=== PATIENT | male | born 1970 ===

== ENCOUNTER 2018-11-08 23:09 | Observation (INO) | payer BC, SELFPAY ==
[2018-11-08] MEDS ORDERED: Nitroglycerin 0.4 MG TAB (25 Tab Bottle) ONE (23:31)
[2018-11-08] MEDS ORDERED: Nitroglycerin 2% Ointment 1 INCH/1 GM Packet ONE (23:31)
[2018-11-08 23:39] LABS: #Basophils 0.1 thou/uL (0.0-0.2); #Eosinphils 0.2 thou/uL (0.0-0.7); #Lymphocytes 1.6 thou/uL (1.20-3.40); #Monocytes 0.5 thou/uL (0.11-0.59); #Neutrophils 2.9 thou/uL (1.40-6.50); %Basophils 1.4 % (0.0-1.0); %Eosinophils 3.7 % (0.0-10.0); %Lymphocytes 30.2 % (21.0-51.0); %Neutrophils 55.6 % (42.0-75.0); Mean Corpuscular HGB CONC 34.5 g/dL (32.0-36.0); Mean Corpuscular Hemoglobin 30.1 pg (27.0-31.0); Mean Corpuscular Volume 87.3 fL (78.0-98.0); Mean Platelet Volume 8.6 fL (7.4-10.4); Platelet Count 258 thou/uL (130-400); RBC Distribution Width 12.3 % (11.5-14.5); Red Blood Cell (RBC) Count 4.64 mill/uL (4.70-6.10); White Blood Cell (WBC) Count 5.1 thou/uL (4.8-10.8)
[2018-11-08 23:51] LABS: ALT (SGPT) 21 U/L (8-55); AST (SGOT) 27 U/L (5-34); Albumin 4.2 g/dL (3.5-5.0); Alkaline Phosphatase 75 U/L (40-150); Anion Gap 16 mmol/L (10-20); BUN (Urea Nitrogen) 22 mg/dL (8.9-20.6); Bilirubin, Total 0.4 mg/dL (0.2-1.2); CK (CPK) 1066 U/L (30-200); Calc. Creatinine Clearance 0 mL/min (70-130); Calcium 9.4 mg/dL (7.8-10.44); Carbon Dioxide 27 mmol/L (22-29); Chloride 102 mmol/L (98-107); Estimated GFR-MDRD 27; Globulin 3.7 g/dL (2.4-3.5); Glucose 160 mg/dL (70-105); Lipase 91 U/L (8-78); Protein, Total 7.9 g/dL (6.0-8.3); Sodium 142 mmol/L (136-145)
[2018-11-08 23:53] LABS: Potassium 2.7 mmol/L (3.5-5.1)
--- NOTE | 2018-11-08 23:58 | RAD ---
PORTABLE CHEST ONE VIEW: 11/08/18 at 11:53 p.m. HISTORY: Chest pain. FINDINGS: The heart size is borderline. No lobar consolidation, pneumothoraces, kristopher pulmonary edema or pleura l effusions are seen. IMPRESSION: No acute process. POS: [facility]
[2018-11-09] MEDS ORDERED: Potassium Chloride 20 MEQ TAB ONE (00:18)
[2018-11-09] MEDS ORDERED: Aspirin 325 MG TAB ONE (00:18)
[2018-11-09 01:48] VITALS: BMI 36.3
[2018-11-09] MEDS ORDERED: hydrALAZINE 20 MG/ML VIAL SLOW IVP PRN ×2 (02:31→03:37)
[2018-11-09] MEDS ORDERED: Sodium Chloride 0.9% 1,000 ML IV SCH ×2 (02:45→03:45)
[2018-11-09 03:19] LABS: Troponin I 0.019 ng/mL (< 0.028)
[2018-11-09] MEDS ORDERED: tiZANidine HCl 4 MG TAB PO PRN (03:39)
[2018-11-09] MEDS ORDERED: Acetaminophen/Codeine 30-300mg Tablet PO PRN (03:39)
[2018-11-09] MEDS ORDERED: Carvedilol 25 MG TAB PO SCH (04:00)
[2018-11-09] MEDS ORDERED: NIFEdipine XL 60 MG TAB PO SCH (04:00)
[2018-11-09] MEDS: Acetaminophen 325 MG TAB PO PRN ×2 (04:00→10:40)
--- NOTE | 2018-11-09 04:59 | HP ---
PRIMARY CARE PHYSICIAN: Dr. Menchaca at the [facility]. CHIEF COMPLAINT: Pain in the left shoulder, neck, and arm. HISTORY OF PRESENT ILLNESS: Mr. Baker is a pleasant 48-year-old gentleman who has a history of hypertension and hypercholesterolemia as well as chronic kidney disease stage 3. He was in his usual state of health until the past week when he noticed that he started having pain in his shoulder and left arm that has been radiating to his jaw. He says that he had been on a workout routine, but then had stopped for a while and then was getting back at it and had been doing some pushups off and on and he attributed this pain to that. He says that he went to have a massage, but this did not help with the pain and he also noticed that it was there all the time, it feels like a pressure and sometimes it can get as bad as an 8/10. There is no shortness of breath, no nausea, no vomiting associated with it. He denies any leg pain or leg swelling and no palpitations. However, when he came to the emergency room, he was noted to have an extremely high blood pressure with the systolic as high as 240 and diastolics in the one teens and for this reason, he is being placed in observation. When asked if he has had trouble with blood pressure control, he says yes. He also was sent to see a aerospace control and warning systems due to his chronic kidney disease as well as his elevated blood pressure. Currently, he says he has gotten some blood work done as well as collecting a 24-hour urine to help to determine why his blood pressure is high and also why his potassium tends to run low. He says he has been tried on multiple medications including clonidine, hydralazine, and Procardia. 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 He also says that his baseline creatinine is about 2. REVIEW OF SYSTEMS: All systems were reviewed and are negative except for that mentioned in the History of Present Illness. PAST MEDICAL HISTORY: Significant for hypertension, elevated cholesterol, and chronic kidney disease stage 3. PAST SURGICAL HISTORY: He has had left knee surgery due to a torn meniscus. ALLERGIES: NO KNOWN DRUG ALLERGIES. SOCIAL HISTORY: He is . He is a nonsmoker and nondrinker. Denies any drug use. FAMILY HISTORY: Significant for father who had diabetes mellitus, hypertension, cerebrovascular disease, and the mother had an PA. CURRENT MEDICATIONS: Include; 1. Carvedilol 25 mg twice daily. 2. Losartan 100 mg daily. 3. Potassium 40 mEq a day. PHYSICAL EXAMINATION: GENERAL: He is alert and oriented. He appears to be in no acute distress. He is well developed and well nourished. VITAL SIGNS: Blood pressure is 204/114, heart rate 57, respiratory rate of 16, temperature is 98.4, and O2 saturation is 96% on room air. HEENT: Pupils are equal, round, and reactive to light. Extraocular muscles are intact. His sclerae are anicteric. Throat; no erythema, no exudates. NECK: No adenopathy. No bruits. LUNGS: Clear to auscultation. There is no wheezing, no rales, no rhonchi. CARDIOVASCULAR: He has a normal S1, S2. There is no S3 or S4. No murmurs, clicks, or rubs. ABDOMEN: Obese, it is soft, it is nontender and nondistended. Positive for bowel sounds. No rebound. No guarding. No organomegaly. EXTREMITIES: There is no clubbing or cyanosis. No edema. No calf tenderness. No joint effusions. There is no crepitus in the shoulder joint. There is no warmth, no effusions, and he has a full range of motion. NEUROLOGIC: Cranial nerves 2 through 12 are intact. Muscle strength is 5/5 in both his upper and lower extremities. SKIN AND INTEGUMENT: No skin changes, no rash. LABORATORY RESULTS: White blood cell count 5.1, hemoglobin 14, hematocrit is 40.5, and platelet count is 258. Sodium 142, potassium 2.7, chloride is 102, CO2 is 27, BUN of 22, creatinine 2.5, glucose is 160. CK is 1066. Troponin is 0.1. Chest x-ray is poorly penetrated and heart size is a bit large, so there is some mild cardiomegaly and no increase in pulmonary vascular markings. ASSESSMENT: This is a 48-year-old gentleman who presents to the emergency room complaining of pain and discomfort in his left shoulder, arm, and neck. I suspect this is due to a muscle strain; however, his blood pressure was extremely high and therefore, he is being placed in observation as a precaution. 1. For hypertensive urgency, we will restart Procardia tonight in addition to continuing the losartan and the carvedilol. Given he has had longstanding hypertension, we will go ahead and get an echocardiogram as well to assess his ejection fraction and to see if there is any evidence of hypertrophy. 2. Left shoulder pain. Again, this is suspected to be musculoskeletal, but we will go ahead and get a stress test since he has not had one recently. Check a lipid panel and screen him for diabetes to further assess his risk for coronary artery disease. 3. Chronic kidney disease. He may have a mild [id number] kidney insufficiency. However, his says she believes that his creatinine is about 2 to 2.4 at baseline. 4. Hypokalemia. We will continue to replace. It appears as if he is probably getting this worked up by his aerospace control and warning systems, Dr. Quintana at [facility]. I suspect he is being screened for hyperaldosteronism as well as other potential causes and if necessary, those records can be obtained. 5. Hopefully, if the patient's blood pressure is within a reasonable range, likely acceptable goal would be 160s to 150s systolic, then likely he can be discharged home if his echo and stress test are negative. Job ID: [id number]
[2018-11-09 05:20] LABS: Troponin I 0.014 ng/mL (< 0.028)
[2018-11-09] MEDS: Nitroglycerin 2% Ointment 1 INCH/1 GM Packet TOP SCH ×3 (05:36→20:59)
[2018-11-09] MEDS ORDERED: Ondansetron PF 4 MG/2 ML Vial IVP PRN (08:13)
[2018-11-09] MEDS ORDERED: Diabetic Tussin 200 MG/10 ML UDCUP PO PRN (08:13)
[2018-11-09] MEDS ORDERED: Calcium Carbonate 500 MG ChewTAB PO PRN (08:13)
[2018-11-09] MEDS ORDERED: HYDROcodone/Acetaminophen 5/325 mg Tablet PO PRN (08:13)
[2018-11-09] MEDS ORDERED: Sodium Chloride 0.65% Nasal 44 ML BOT EA NARE PRN (08:13)
[2018-11-09] MEDS ORDERED: Ondansetron ODT 4 MG TAB PO PRN (08:13)
[2018-11-09] MEDS ORDERED: Loratadine 10 MG TAB PO PRN (08:13)
[2018-11-09] MEDS ORDERED: Artificial Tears 18 DROP/0.9 ML EA EYE PRN (08:13)
[2018-11-09] MEDS ORDERED: Senokot S 8.6-50 MG TAB PO PRN (08:13)
[2018-11-09] MEDS ORDERED: Loperamide HCl 2 MG CAP PO PRN (08:13)
[2018-11-09] MEDS ORDERED: Zolpidem Tartrate 5 MG TAB PO PRN (08:13)
[2018-11-09] MEDS ORDERED: Cepastat Lozenges 1 LOZ PO PRN (08:13)
[2018-11-09] MEDS ORDERED: Bisacodyl 10 MG SUPP PR PRN (08:13)
[2018-11-09] MEDS ORDERED: Potassium Chloride 20 MEQ TAB PO SCH ×2 (09:00→12:00)
[2018-11-09 09:10] LABS: Magnesium 2.2 mg/dL (1.6-2.6)
[2018-11-09 09:20] LABS: Anion Gap 15 mmol/L (10-20); BUN (Urea Nitrogen) 20 mg/dL (8.9-20.6); CK (CPK) 936 U/L (30-200); Calc. Creatinine Clearance 74 mL/min (70-130); Calcium 9.6 mg/dL (7.8-10.44); Carbon Dioxide 24 mmol/L (22-29); Chloride 104 mmol/L (98-107); Estimated GFR-MDRD 35; Glucose 80 mg/dL (70-105); Sodium 140 mmol/L (136-145)
[2018-11-09 09:23] LABS: Potassium 2.9 mmol/L (3.5-5.1)
--- NOTE | 2018-11-09 09:55 | PDOC.HOSPP ---
- Subjective Encounter Date: 11/09/18 Encounter Time: 07:40 Subjective: Patient seen and examined. No new complaints. No overnight events - Objective Vital Signs & Weight: Vital Signs (12 hours) Temp Pulse Resp BP BP Pulse Ox 11/09/18 07:37 97.7 F 61 18 179/102 H 97 11/09/18 05:39 150/81 H 11/09/18 05:21 49 L 205/111 H 11/09/18 03:59 57 L 211/114 H 11/09/18 03:51 98.4 F 51 L 16 211/114 H 98 11/09/18 03:37 98 11/09/18 01:34 98.4 F 57 L 16 204/114 H 96 Weight Weight 260 lb 11.2 oz Result Diagrams: 11/08/18 23:28 11/09/18 08:36 EKG Reviewed by me: Yes (nsr) Hospitalist ROS - Review of Systems Constitutional: denies: fever, chills, sweats, weakness, malaise, other Eyes: denies: pain, vision change, conjunctivae inflammation, eyelid inflammation, redness, other ENT: denies: ear pain, ear discharge, nose pain, nose discharge, nose congestion , mouth pain, mouth swelling, throat pain, throat swelling, other Respiratory: denies: cough, dry, shortness of breath, hemoptysis, SOB with excertion, pleuritic pain, sputum, wheezing, other Cardiovascular: denies: chest pain, palpitations, orthopnea, paroxysmal noc. dyspnea, edema, light headedness, other Gastrointestinal: denies: nausea, vomitting, abdominal pain, diarrhea, constipation, melena, hematochezia, other Genitourinary: denies: dysuria, frequency, incontinence, hematuria, retention, other Musculoskeletal: denies: neck pain, shoulder pain, arm pain, back pain, hand pain, leg pain, foot pain, other Skin: denies: rash, lesions, garcia, bruising, other - Medication Medications: Active Medications Generic Name Dose Route Start Last Admin Trade Name Freq PRN Reason Stop Dose Admin Acetaminophen 650 mg 11/09/18 03:37 11/09/18 04:00 Tylenol PO 650 mg Q4H PRN Administration Headache/Fever/Mild Pain (1-3) Hydralazine HCl 20 mg 11/09/18 03:37 11/09/18 05:21 Apresoline SLOW IVP 20 mg Q6H PRN Administration SBP Greater Than 170 Sodium Chloride 1,000 mls @ 50 mls/hr 11/09/18 03:45 11/09/18 04:06 Normal Saline 0.9% IV 1,000 mls .Q20H BRIDGETTE Administration Nitroglycerin 0.5 inch 11/09/18 06:00 11/09/18 05:36 Nitro-Bid 2% Ointment TOP Not Given Q8HR BRIDGETTE Tizanidine HCl 4 mg 11/09/18 03:39 11/09/18 04:03 Zanaflex PO 4 mg TID PRN Administration Muscle Spasm - Exam General Appearance: NAD, awake alert Eye: PERRL, anicteric sclera ENT: normocephalic atraumatic, no oropharyngeal lesions Neck: supple, symmetric, no JVD, no thyromegaly Heart: RRR, no murmur, no gallops, no rubs, normal peripheral pulses Respiratory: CTAB, no wheezes, no rales, no ronchi Gastrointestinal: soft, non-tender, non-distended, normal bowel sounds, no palpable masses, no hepatomegaly Extremities: no cyanosis, no clubbing, no edema Skin: normal turgor, no lesions, no rashes Neurological: CN's grossly intact, normal sensation to touch, no focal deficits Musculoskeletal: normal tone, normal strength, no muscle wasting Psychiatric: normal affect, normal behavior, A&O x 3 Hosp A/P (1) Hypertensive urgency Code(s): I16.0 - HYPERTENSIVE URGENCY Status: Acute (2) Hypokalemia Code(s): E87.6 - HYPOKALEMIA Status: Acute (3) Left shoulder pain Code(s): M25.512 - PAIN IN LEFT SHOULDER Status: Acute (4) Rhabdomyolysis Code(s): M62.82 - RHABDOMYOLYSIS Status: Acute (5) CKD (chronic kidney disease) stage 4, GFR 15-29 ml/min Code(s): N18.4 - CHRONIC KIDNEY DISEASE, STAGE 4 (SEVERE) Status: Chronic (6) Obesity (BMI 30-39.9) Code(s): E66.9 - OBESITY, UNSPECIFIED Status: Chronic - Plan old records reviewed/req, plan discussed w/ family change KCL 40 meq po bid given hypokalemia and hypertension, check renin activity and aldosterone level today stress test mag and phos checked, normal CK improving will repeat bmp tomorrow medication reviewed as above symptomatic treatment
[2018-11-09] MEDS: Heparin 5,000 UNITS/ML VIAL SC SCH ×3 (10:45→20:59)
[2018-11-09] MEDS: hydrALAZINE 25 MG TAB PO SCH ×4 (10:45→20:57)
[2018-11-09] MEDS: Potassium Chloride 20 MEQ TAB PO SCH ×2 (12:38→17:03)
[2018-11-09] MEDS: Losartan 25 MG TAB PO SCH (12:38)
[2018-11-09] MEDS: Spironolactone 25 MG TAB PO SCH ×2 (12:39→17:04)
--- NOTE | 2018-11-09 13:04 | NM ---
Exam: Nuclear medicine cardiac stress only study with ejection fraction and wall motion HISTORY: Chest pain Nuclear medicine treadmill stress study is performed Patient was injected with 31.7 mCi technetium 99m sestamibi intravenously for stress images Short axis, vertical long axis, and horizontal long axis images demonstrate no evidence for infarct o r ischemia. LHR 0.24 EDV 185 mL Ejection fraction 53% Wall motion unremarkable. IMPRESSION: No scan evidence for infarct or ischemia. Elevated EDV at 185 mL.
[2018-11-09] MEDS: Carvedilol 25 MG TAB PO SCH (20:58)
[2018-11-10 05:45] LABS: #Basophils 0.1 thou/uL (0.0-0.2); #Eosinphils 0.2 thou/uL (0.0-0.7); #Monocytes 0.4 thou/uL (0.11-0.59); #Neutrophils 3.1 thou/uL (1.40-6.50); %Basophils 1.2 % (0.0-1.0); %Eosinophils 2.6 % (0.0-10.0); %Lymphocytes 35.3 % (21.0-51.0); %Monocytes 7.1 % (0.0-10.0); %Neutrophils 53.8 % (42.0-75.0); Hemoglobin 14.9 g/dL (14.0-18.0); Mean Corpuscular HGB CONC 34.9 g/dL (32.0-36.0); Mean Corpuscular Hemoglobin 31.3 pg (27.0-31.0); Mean Corpuscular Volume 89.8 fL (78.0-98.0); Platelet Count 272 thou/uL (130-400); RBC Distribution Width 12.2 % (11.5-14.5); Red Blood Cell (RBC) Count 4.77 mill/uL (4.70-6.10); White Blood Cell (WBC) Count 5.8 thou/uL (4.8-10.8)
[2018-11-10] MEDS: hydrALAZINE 25 MG TAB PO SCH ×2 (05:59→16:06)
[2018-11-10] MEDS: Losartan 25 MG TAB PO SCH (06:01)
[2018-11-10 06:05] LABS: Anion Gap 14 mmol/L (10-20); BUN (Urea Nitrogen) 21 mg/dL (8.9-20.6); Calc. Creatinine Clearance 75 mL/min (70-130); Calcium 9.7 mg/dL (7.8-10.44); Carbon Dioxide 24 mmol/L (22-29); Cardiac Risk 5.2 (Less than 4.5); Chloride 102 mmol/L (98-107); Cholesterol 273 mg/dl (< 200 Desired); Estimated GFR-MDRD 36; Glucose 109 mg/dL (70-105); HDL Cholesterol 53 mg/dL (>60 Neg Risk); LDL Cholesterol, Calculated 198 mg/dL; Sodium 137 mmol/L (136-145); Triglycerides 110 mg/dL (Less than 150)
[2018-11-10 06:08] LABS: Potassium 2.9 mmol/L (3.5-5.1)
[2018-11-10] MEDS: Nitroglycerin 2% Ointment 1 INCH/1 GM Packet TOP SCH ×2 (06:41→16:06)
[2018-11-10] MEDS: Potassium Chloride 20 MEQ TAB PO SCH (08:38)
[2018-11-10] MEDS: Spironolactone 25 MG TAB PO SCH (08:39)
[2018-11-10] MEDS: Carvedilol 25 MG TAB PO SCH (08:41)
[2018-11-10] MEDS: Heparin 5,000 UNITS/ML VIAL SC SCH ×2 (08:43→16:06)
[2018-11-10] MEDS ORDERED: NIFEdipine XL 60 MG TAB PO SCH (09:00)
[2018-11-10] MEDS ORDERED: Spironolactone 100 MG TAB PO SCH (09:30)
[2018-11-10] MEDS ORDERED: Potassium Chloride 20 MEQ TAB PO SCH ×2 (09:30→10:30)
--- NOTE | 2018-11-10 10:03 | PDOC.HOSPP ---
- Subjective Encounter Date: 11/10/18 Encounter Time: 10:01 Subjective: 48 y/o male with uncontrolled HTN, CKD 3 admitted with left shoulder pain radiating to jaw and arm. found to have markedly elevated BP and hypokalemia on presentation. Acute [place] was ruled out and he subsequently had stress test which was negative. BP remained uncontroled and hypokalemia persist. - Objective Vital Signs & Weight: Vital Signs (12 hours) Temp Pulse Resp BP BP Pulse Ox 11/10/18 09:11 98 11/10/18 08:00 98.2 F 65 16 182/110 H 98 11/10/18 06:00 182/111 H 11/10/18 05:59 73 186/111 H 11/10/18 05:42 97 11/10/18 05:22 196/117 H 11/09/18 23:45 73 18 166/92 H Weight Weight 260 lb 11.2 oz I&O: 11/09/18 11/10/18 11/11/18 06:59 06:59 06:59 Intake Total 1180 Output Total 1450 Balance -270 Result Diagrams: 11/10/18 05:25 11/10/18 05:25 Hospitalist ROS - Medication Medications: Active Medications Generic Name Dose Route Start Last Admin Trade Name Freq PRN Reason Stop Dose Admin Acetaminophen 650 mg 11/09/18 03:37 11/09/18 10:40 Tylenol PO 650 mg Q4H PRN Administration Headache/Fever/Mild Pain (1-3) Heparin Sodium (Porcine) 5,000 units 11/09/18 09:00 11/10/18 08:43 Heparin SC Not Given TID [facility] Hydralazine HCl 20 mg 11/09/18 03:37 11/09/18 05:21 Apresoline SLOW IVP 20 mg Q6H PRN Administration SBP Greater Than 170 Hydralazine HCl 25 mg 11/09/18 09:00 11/10/18 05:59 Apresoline PO 25 mg QID BRIDGETTE Administration Losartan Potassium 100 mg 11/09/18 09:00 11/10/18 06:01 Cozaar PO 100 mg DAILY BRIDGETTE Administration Nifedipine 60 mg 11/10/18 09:00 11/10/18 08:41 Procardia Xl PO 60 mg DAILY BRIDGETTE Administration Nitroglycerin 0.5 inch 11/09/18 06:00 11/10/18 06:41 Nitro-Bid 2% Ointment TOP Not Given Q8HR BRIDGETTE Tizanidine HCl 4 mg 11/09/18 03:39 11/09/18 04:03 Zanaflex PO 4 mg TID PRN Administration Muscle Spasm - Exam General Appearance: awake alert General - other findings: heavy built male Eye: anicteric sclera ENT: normocephalic atraumatic Neck: supple, symmetric Heart: RRR Respiratory: no wheezes, no rales, no ronchi, normal chest expansion, no tachypnea Gastrointestinal: soft, non-tender, non-distended, normal bowel sounds Extremities: no cyanosis, no edema Extremeties - other findings: Left shoulder tenderness Neurological: CN's grossly intact, no focal deficits Psychiatric: normal affect, A&O x 3 Hosp A/P (1) Hypertensive urgency Code(s): I16.0 - HYPERTENSIVE URGENCY Status: Acute (2) Hypokalemia Code(s): E87.6 - HYPOKALEMIA Status: Acute (3) Left shoulder pain Code(s): M25.512 - PAIN IN LEFT SHOULDER Status: Acute (4) Rhabdomyolysis Code(s): M62.82 - RHABDOMYOLYSIS Status: Acute (5) Obesity (BMI 30-39.9) Code(s): E66.9 - OBESITY, UNSPECIFIED Status: Chronic (6) CKD (chronic kidney disease) stage 3, GFR 30-59 ml/min Code(s): N18.3 - CHRONIC KIDNEY DISEASE, STAGE 3 (MODERATE) Status: Acute (7) Hyperaldosteronism Code(s): E26.9 - HYPERALDOSTERONISM, UNSPECIFIED Status: Acute (8) YOLANDA (obstructive sleep apnea) Code(s): G47.33 - OBSTRUCTIVE SLEEP APNEA (ADULT) (PEDIATRIC) Status: Acute - Plan Substitute coreg with labetalol. Replete serum potassium. Start spironolactone 100 mg daily for presumed primary hyperaldo Await PAR ratio get Renal US with dopplers Rechecl electrolytes
[2018-11-10] MEDS ORDERED: Labetalol 100 MG TAB PO SCH ×2 (10:30→21:00)
[2018-11-10 12:24] LABS: Anion Gap 11 mmol/L (10-20); BUN (Urea Nitrogen) 22 mg/dL (8.9-20.6); Calc. Creatinine Clearance 67 mL/min (70-130); Calcium 9.4 mg/dL (7.8-10.44); Carbon Dioxide 28 mmol/L (22-29); Chloride 103 mmol/L (98-107); Estimated GFR-MDRD 31; Glucose 96 mg/dL (70-105); Potassium 3.2 mmol/L (3.5-5.1); Sodium 139 mmol/L (136-145)
[2018-11-10 15:38] VITALS: BP 143/81; TEMP 98.1
--- NOTE | 2018-11-10 17:52 | PDOC.EVN ---
Event Note - Event Note Event Note: Discharge summary dictated. #[id number]
--- NOTE | 2018-11-10 18:32 | DIS ---
DATE OF ADMISSION: 11/09/2018 DATE OF DISCHARGE: 11/10/2018 PRIMARY CARE PHYSICIAN: ERLIN. DISCHARGE DIAGNOSES: 1. Hypertensive urgency. 2. Primary hyperaldosteronism. 3. Severe hypokalemia. 4. Left shoulder pain. 5. Rhabdomyolysis. 6. Obesity. 7. Chronic kidney disease, stage 3. 8. Obstructive sleep apnea. 9. Moderate concentric left ventricular hypertrophy. HOSPITAL COURSE: A 48-year-old male with known history of uncontrolled hypertension, CKD stage 3, admitted with left shoulder pain radiating to the jaw and arm. On presentation, the patient was found to have markedly elevated blood pressure as well as hypokalemia. Acute myocardial infarction was ruled out with serial troponin and the patient subsequently had stress test which was negative. Given history of spontaneous hypokalemia and uncontrolled hypertension, primary hyperaldosteronism was considered and plasma aldosterone level as well as plasma renin activity was ordered. Potassium level was repleted with potassium chloride. The patient was started on spironolactone and antihypertensives were adjusted to get adequate BP control. The patient remained stable and was subsequently discharged home to follow up with a printer's devil of his choice and PCP. PHYSICAL EXAMINATION: VITAL SIGNS: Temperature 98.1, pulse 69, respiratory rate 16, SpO2 of 95% on room air, blood pressure 143/81. GENERAL: Muscular middle-age male, in no distress. Afebrile. Anicteric. Acyanotic. HEENT: Normocephalic and atraumatic. Oral mucosa is moist. CARDIOVASCULAR: Regular rhythm and rate with normal. heart sounds one and two. RESPIRATORY: Good air entry bilaterally with no obvious crackle or rhonchi or use of accessory muscles. GI: Full, soft, nontender, nondistended with normal bowel sounds. EXTREMITIES: Grossly normal looking, atraumatic with no edema or erythema. HOSPITAL STAFF PHARMACIST: Conscious, alert and oriented x3 with appropriate mental status. Cranial nerves 2 through 12 are grossly intact. The patient is ambulant. MUSCULOSKELETAL: Left shoulder tenderness noted. DISCHARGE DISPOSITION: Home. DISCHARGE CONDITION: Improved. DISCHARGE MEDICATION: 1. Losartan 100 mg p.o. daily. 2. Potassium chloride 40 mEq p.o. daily. 3. Labetalol 100 mg p.o. b.i.d. 4. Nifedipine 60 mg p.o. b.i.d. 5. Spironolactone 100 mg p.o. daily. 6. Tramadol 50 mg q.i.d. p.r.n. for pain. Job ID: [id number]
--- NOTE | 2018-11-10 18:35 | ULT ---
BILATERAL RENAL ULTRASOUND AND DOPPLER: History: Chronic renal disease, hypertension. FINDINGS: The right kidney measures 11.2 cm in length and the left kidney measures 13.2 cm in length. No focal mass or hydronephrosis is seen. Cortical echogenicity is increased. No cortical thinning is seen. The peak systolic velocity in the right renal artery measures 90 cm/sec and the left renal artery melany sures 69 cm/sec with renal to aortic ratio of 0.82 and 0.62 on the right and left arteries respective ly. The resistive indices measure 0.49 on the right and 0.60 on the left. 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 No evidence of hemodynamically significant renal art jerome stenosis. POS: [facility]
[2018-11-11] MEDS ORDERED: Spironolactone 100 MG TAB PO SCH (08:00)
[2018-11-12 11:10] LABS: Renin Activity 0.824 ng/mL/hr (0.167-5.380)
== END 2018-11-10 17:48 | disposition home or self-care (01) ==
LOC: SCSER 23:09 → 2SW 11-09 00:15
PROVIDERS: ADMIT Internal Medicine; ATTEND Internal Medicine
DX: I16.0 Hypertensive urgency (principal); I12.9 Hypertensive chronic kidney disease with stage 1 through stage 4 chronic kidney disease, or unspecified chronic kidney disease; N18.3 Chronic kidney disease, stage 3 (moderate); E78.00 Pure hypercholesterolemia, unspecified; E66.9 Obesity, unspecified; E26.09 Other primary hyperaldosteronism; E87.6 Hypokalemia; G47.33 Obstructive sleep apnea (adult) (pediatric); M62.82 Rhabdomyolysis; Z68.36 Body mass index [BMI] 36.0-36.9, adult; Z79.899 Other long term (current) drug therapy
CPT/HCPCS: 36415; 71045; 76700; 76770; 78452; 80048; 80053; 80061; 82088; 82550; 83690; 83735; 84100; 84244; 84484; 85025; 93005; 93017; 93306; 94760; 96360; 96361; 96375; A9500; G0378; J0360; J1644

== ENCOUNTER 2019-06-24 11:30 | Emergency (ER) | payer BC, OTHER ==
[~2019-06-24 11:30] MED LIST: Calcium Chloride 1 GM/10 ML Abboject SYRINGE ONE; EPINEPHrine 1 MG/10 ML Abboject SYRINGE ONE; Sodium Bicarb 50 MEQ/50 ML Abboject 8.4% SYRINGE ONE
== END 2019-06-24 12:04 | disposition expired ==
LOC: ERS 11:30
DX: I46.9 Cardiac arrest, cause unspecified (principal); I12.9 Hypertensive chronic kidney disease with stage 1 through stage 4 chronic kidney disease, or unspecified chronic kidney disease; N18.3 Chronic kidney disease, stage 3 (moderate); E78.00 Pure hypercholesterolemia, unspecified
CPT/HCPCS: 31500; 87635; 92950; 96374; 96375; J0171; U0002